=== PATIENT | male | born 1965 | race Caucasian/White ===

== ENCOUNTER 2018-08-13 06:07 | Day surgery (SDC) | payer OTHER ==
[~2018-08-13] VITALS: Ht 182.9 cm; Wt 88.2 kg
[~2018-08-13 06:07] MED LIST: CEFD300 PO; Co Q-10100 MG PO; Colace100 MG PO; EPIN.3I IM; MUPI2TC TOP; Multiple Vitam1 EAC1 PO; PRAV20 PO; Percocet 5-3251 EACH PO; Zofran4 MG PO
== END 2018-08-13 10:07 | disposition home or self-care (01) ==
LOC: ORSCSDS 06:07
PROVIDERS: Podiatrist Foot & Ankle Surgery
PROC: 0QSR04Z Reposition Left Toe Phalanx with Internal Fixation Device, Open Approach (ICD-10-PCS; principal; 2018-08-13 07:45)
PROC: 0QSP04Z Reposition Left Metatarsal with Internal Fixation Device, Open Approach (ICD-10-PCS; principal; 2018-08-13 07:45)
DX: M20.12 Hallux valgus (acquired), left foot (principal); E78.5 Hyperlipidemia, unspecified; Z79.899 Other long term (current) drug therapy
CPT/HCPCS: C1713; C1769; J0690; J2250; J3010; J7120

== ENCOUNTER → 2020-01-11 | Outpatient (CLI) | payer OTHER | END | disposition home or self-care (01) | LOC: LAB SHORT 08:26 → PLD 08:26 | DX: D48.5 Neoplasm of uncertain behavior of skin (principal) | CPT/HCPCS: 88305 ==